=== PATIENT | female | born 1935 | race Caucasian/White ===

== ENCOUNTER 2017-07-24 18:23 | Inpatient (IN) | payer MEDICARE ==
[2017-07-24] MEDS ORDERED: Ondansetron HCl/PF 4 MG/2 ML Vial ONE ×2 (18:27→20:21)
[2017-07-24] MEDS ORDERED: Lidocaine Viscous Sol 2% 15 ml UD Cup ONE (18:51)
[2017-07-24] MEDS ORDERED: Fentanyl 100 MCG/2 ML VIAL ONE (19:02)
[2017-07-24 19:13] LABS: Lactic Acid - Sepsis 1.9 mmol/L (0.5-2.2)
[2017-07-24 19:19] LABS: PTT 28.2 SEC (22.9-36.1)
[2017-07-24 19:29] LABS: Troponin I Less than 0.010 ng/mL (< 0.028)
[2017-07-24] MEDS ORDERED: Sodium Chloride 0.9% 100 ML ONE (19:30)
[2017-07-24] MEDS ORDERED: Meropenem 1 GM VIAL ONE (19:30)
[2017-07-24] MEDS ORDERED: Lidocaine 2% PF 10 ML AMP (For Epidural Use) ONE (20:21)
[2017-07-24] MEDS ORDERED: Glycopyrrolate 0.2 MG/ML 5 ML SYRINGE ONE (20:21)
[2017-07-24] MEDS ORDERED: Succinylcholine Chloride 20 MG/ML 10 ml SYRINGE FS ONE (20:21)
[2017-07-24] MEDS ORDERED: Propofol 200 MG/20 ML VIAL ONE (20:21)
[2017-07-24] MEDS ORDERED: Dexamethasone 20 MG/5 ML VIAL ONE (20:21)
[2017-07-24] MEDS ORDERED: Ketorolac Tromethamine 30 MG/ML VIAL IVP PRN (20:57)
[2017-07-24] MEDS ORDERED: diphenhydrAMINE HCl 25 MG CAP PO PRN (20:57)
[2017-07-24] MEDS ORDERED: Morphine Sulfate 2 MG/ML SYRINGE SLOW IVP PRN (20:57)
[2017-07-24] MEDS ORDERED: Naloxone HCl 0.4 mg/ml Vial IV PRN (20:57)
[2017-07-24] MEDS ORDERED: diphenhydrAMINE HCl 50 MG/ML 1 ML VIAL IVP PRN (20:57)
[2017-07-24] MEDS ORDERED: Morphine CADD 1 MG/ML CADD IVPB PRN (20:57)
[2017-07-24] MEDS ORDERED: Promethazine HCl 25 MG/ML VIAL SLOW IVP PRN (20:57)
[2017-07-24] MEDS ORDERED: Ondansetron HCl/PF 4 MG/2 ML Vial IVP PRN ×3 (20:57→22:26)
[2017-07-24] MEDS ORDERED: Zolpidem Tartrate 5 MG TAB PO PRN (20:57)
[2017-07-24] MEDS ORDERED: Promethazine HCl 25 MG/ML VIAL IM PRN ×3 (20:57→22:26)
[2017-07-24] MEDS ORDERED: diphenhydrAMINE HCl 50 MG/ML 1 ML VIAL IM PRN (20:57)
[2017-07-24] MEDS ORDERED: Communication Order-Pharmacy FS SCH (21:00)
[2017-07-24] MEDS ORDERED: Morphine CADD 100 ML ONE (21:06)
--- NOTE | 2017-07-24 21:26 | RAD ---
AP ABDOMINAL RADIOGRAPH: 07/24/17 HISTORY: NG tube placement. COMPARISON: 07/24/17. Nasogastric tube is noted in place with the tip overlying the expected location of the distal esopha jessica. Nasogastric tube should be advanced by at least 12 cm. There is contrast seen within the stomac h as well as collecting systems, likely related to recent CT scan examination performed earlier toda y. No other interval change from prior views of the abdomen. IMPRESSION: Nasogastric tube noted in place with tip overlying the distal esophagus. Nasogastric tube should be advanced by at least 12 cm. POS: [facility]
[2017-07-24] MEDS ORDERED: Dextrose 50% Abboject 50 ML SYRINGE SLOW IVP PRN (22:26)
[2017-07-24] MEDS ORDERED: Dextrose 5% in Water 1,000 ML IV PRN (22:26)
[2017-07-24] MEDS ORDERED: Ondansetron ODT 4 MG TAB PO PRN (22:26)
[2017-07-24] MEDS: Sodium Chloride 0.9% 1,000 ML IV SCH (22:30)
[2017-07-24] MEDS ORDERED: Famotidine/PF 20 mg/2ml Vial SLOW IVP SCH (22:45)
[2017-07-25 00:17] VITALS: BMI 23.8
--- NOTE | 2017-07-25 04:47 | OP ---
DATE OF PROCEDURE: 07/24/2017 PREOPERATIVE DIAGNOSIS: Closed loop Small-bowel obstruction. POSTOPERATIVE DIAGNOSIS: Closed loop Small-bowel obstruction. PROCEDURE PERFORMED: Exploratory laparotomy, lysis of adhesions. SURGEON: Mikey Hand MD ANESTHESIA: General. ESTIMATED BLOOD LOSS: Minimal. COMPLICATIONS: None. SPECIMEN: None. FINDINGS: Closed obstruction with mild ischemia. TECHNIQUE: Patient was taken to the operating room and placed supine on the table. After general a nesthetic was obtained, the Robles was placed. The abdomen is prepped and draped in a sterile fashio n. Straight midline incision was made. Cautery was dissected down to the fascia. Fascia was enter ed carefully without injury, the small bowels run distally towards the terminal ileum where an adhes ion had caused a small-bowel obstruction closed loop. The adhesion is able to be bluntly released r eleasing the closed loop obstruction. Small bowels run all the way to the colon without further obs truction, all the way back to the ligament of Treitz. There were mild ischemic changes to the intes concha, but on untwisting it quickly became very viable appearing with no evidence of end organ necros is. All instrument counts, needle counts, and lap counts were correct. There was no other patholog y in the entire in the abdomen. Midline fascia was closed using #1 PDS from the top and the bottom and tied in the middle. Subcutaneous tissues were irrigated and closed using 3-0 Vicryl, 4-0 Monocr yl, and Dermabond. The patient went to recovery in stable condition. All instrument counts, needle counts, and lap counts were correct.
--- NOTE | 2017-07-25 05:41 | HP ---
DATE OF ADMISSION: 07/24/2017 CHIEF COMPLAINT: Abdominal pain. HISTORY OF PRESENT ILLNESS: This is an 81-year-old female who presents with pain in her abdomen, di ffuse, sharp, 8/10, does not radiate, associated with nausea, no vomiting. She denies any diarrhea or constipation. She had previous right colectomy by for early colon cancer. No further adjuvant treatment was needed. She has never had a bowel obstruction before. PAST MEDICAL HISTORY: Includes hypertension. PAST SURGICAL HISTORY: As above. MEDICINES TAKEN DAILY: Lisinopril. ALLERGIES: No known drug allergies. SOCIAL HISTORY: No smoking or alcohol. She is . REVIEW OF SYSTEMS: Otherwise, negative. PHYSICAL EXAMINATION: HEENT: Sclerae are anicteric. Oropharynx is clear. NECK: No lymphadenopathy. CHEST: Clear. HEART: Regular rate and rhythm. ABDOMEN: Soft, diffusely tender with guarding and rebound. EXTREMITIES: No ischemia or edema to extremities. LABORATORY AND X-RAY FINDINGS: White blood cell count is 15, her creatinine is normal. CT scan rev eals evidence of closed loop obstruction. ASSESSMENT: Closed loop small-bowel obstruction. PLAN: Urgent exploratory laparotomy, lysis of adhesions. Risks, benefits, alternatives discussed. She gave consent. We will do this tonight.
[2017-07-25 05:56] LABS: #Lymphocytes 1.1 thou/uL (1.20-3.40); #Monocytes 0.4 thou/uL (0.11-0.59); %Basophils 0.2 % (0.0-1.0); %Lymphocytes 8.5 % (21.0-51.0); %Monocytes 3.3 % (0.0-10.0); Hematocrit 34.1 % (36.0-47.0); Mean Platelet Volume 6.8 fL (7.4-10.4); White Blood Cell (WBC) Count 12.6 thou/uL (4.8-10.8)
[2017-07-25 06:15] LABS: Anion Gap 13 mmol/L (10-20); BUN (Urea Nitrogen) 23 mg/dL (9.8-20.1); Calc. Creatinine Clearance 56 mL/min (70-130); Calcium 8.8 mg/dL (7.8-10.44); Carbon Dioxide 22 mmol/L (23-31); Chloride 107 mmol/L (98-107); Estimated GFR-MDRD 65
[2017-07-25] MEDS: Sodium Chloride 0.9% 1,000 ML IV SCH ×2 (09:26→17:41)
[2017-07-25] MEDS: Famotidine/PF 20 mg/2ml Vial SLOW IVP SCH ×2 (09:27→21:37)
[2017-07-25] MEDS: Enoxaparin Sodium 40 MG/0.4 ML SYRINGE SC SCH (09:27)
--- NOTE | 2017-07-25 14:48 | PRG ---
DATE OF SERVICE: 07/25/2017 SUBJECTIVE: Ms. Denise is postop day #1 ex lap for lysis of adhesion for closed loop obstruction. She is doing well. Her pain is controlled. PHYSICAL EXAMINATION: VITAL SIGNS: She is afebrile, vital signs are stable. Urine output is adequate. NG output was min imal overnight. ABDOMEN: Soft. Her wounds healing well. ASSESSMENT: Postop day #1, exploratory laparotomy for closed loop obstruction. PLAN: Discontinue NG, discontinue Robles, encouraged ambulation, allow sips of clears.
[2017-07-26] MEDS: Sodium Chloride 0.9% 1,000 ML IV SCH (04:04)
[2017-07-26] MEDS: Enoxaparin Sodium 40 MG/0.4 ML SYRINGE SC SCH (09:42)
[2017-07-26] MEDS: Famotidine/PF 20 mg/2ml Vial SLOW IVP SCH ×2 (09:42→21:01)
--- NOTE | 2017-07-26 10:45 | PRG ---
DATE OF SERVICE: 07/26/2017 SUBJECTIVE: Ms. Denise is doing well. No nausea, vomiting, passing gas. PHYSICAL EXAMINATION: VITAL SIGNS: Afebrile, vital signs are stable. ABDOMEN: Soft, nontender, active bowel sounds. Wound is healing well. ASSESSMENT: Tolerating a liquid diet without difficulty, will advance to full liquids, Hep-Lock the IV. Likely home tomorrow. Dr. Javier is going to send her home for me tomorrow
[2017-07-26] MEDS: Lisinopril 20 MG TAB PO SCH (21:00)
[2017-07-27] MEDS ORDERED: HYDROcodone/Acetaminophen 5/325 mg Tablet PO PRN ×2 (04:57)
[2017-07-27] MEDS ORDERED: traMADol HCl 50 MG TAB PO PRN ×2 (04:58)
[2017-07-27] MEDS ORDERED: Levothyroxine Sodium 75 MCG TAB PO SCH (09:00)
[2017-07-27] MEDS ORDERED: Hydrochlorothiazide 25 MG TAB PO SCH (09:00)
[2017-07-27] MEDS ORDERED: Bisacodyl 10 MG SUPP PR PRN (09:13)
--- NOTE | 2017-07-27 09:26 | PRG ---
DATE OF SERVICE: 07/27/2017 SUBJECTIVE: Patient is status post exploratory laparotomy and lysis of adhesions for small bowel obs truction. She reports that she really do not have any significant pain, but she has not passed anyt moises out of her bottom. No gas. No bowel movements. She is tolerating liquids. She feels hungry for something more substantial. PHYSICAL EXAMINATION: VITAL SIGNS: Her temperature is 98.3, pulse 53, blood pressure 169/82. GENERAL: She is awake, alert, in no apparent distress. HEENT: Unremarkable. LUNGS: Clear. HEART: Regular rate and rhythm. ABDOMEN: Slightly distended. There are some bowel sounds present. The incision is healing well wi thout evidence of infection or hernia. ASSESSMENT: Postoperative ileus. PLAN: I would like for her to pass something out of her bottom before she goes home. We will give her a full liquid diet and Dulcolax suppository.
[2017-07-27] MEDS: Enoxaparin Sodium 40 MG/0.4 ML SYRINGE SC SCH (10:12)
[2017-07-27] MEDS: Lisinopril 20 MG TAB PO SCH (10:12)
[2017-07-27] MEDS: Famotidine/PF 20 mg/2ml Vial SLOW IVP SCH (10:13)
[2017-07-27 12:41] VITALS: BP 175/83; TEMP 98.2
== END 2017-07-27 15:15 | disposition home or self-care (01) | DRG 336 ==
LOC: ERS 18:23 → SDC 19:14 → SURG A 22:23
PROVIDERS: ADMIT Surgery; ATTEND Surgery
PROC: 0DN80ZZ Release Small Intestine, Open Approach (ICD-10-PCS; principal; 2017-07-24)
DX: K91.3 Postprocedural intestinal obstruction (principal); K56.7 Ileus, unspecified; N39.0 Urinary tract infection, site not specified; I10 Essential (primary) hypertension; Z90.49 Acquired absence of other specified parts of digestive tract; Z85.038 Personal history of other malignant neoplasm of large intestine; E78.5 Hyperlipidemia, unspecified; E03.9 Hypothyroidism, unspecified; Z96.651 Presence of right artificial knee joint; B96.20 Unspecified Escherichia coli [E. coli] as the cause of diseases classified elsewhere
CPT/HCPCS: 36415; 74000; 80048; 83605; 83690; 83880; 85025; 85610; 85730; 93005; 96361; 96374; 96375; J1100; J1650; J2001; J2185; J2270; J2274; J2405; J2704; J3010; J7050; S0028

== ENCOUNTER 2018-01-04 05:47 | Day surgery (SDC) | payer MEDICARE ==
[2018-01-03 10:01] VITALS: BMI 23.1
--- NOTE | 2018-01-04 01:31 | HP ---
SHORT STAY HISTORY AND PHYSICAL DATE OF ADMISSION: 01/04/2018 HISTORY OF PRESENT ILLNESS: This is an 81-year-old female with history of right colon canc er, status post right colectomy. The patient also had colon polyps removed in the past. The patient at the present time has no specific GI symptoms. The patient also had a colonoscopy because of prev ious colon cancer surgery. ALLERGIES: None. MEDICAL ILLNESSES: 1. Colon cancer, status post right colectomy. 2. Hyperlipidemia. 3. Hypertension. 4. Colon polyp. 5. Arthritis. 6. Hypothyroidism. SOCIAL HISTORY: The patient does not smoke or drink alcohol. PHYSICAL EXAMINATION: VITAL SIGNS: Pulse is 70, blood pressure 140/80. HEENT: Conjunctivae clear. CARDIOVASCULAR SYSTEM: Lungs within normal limits. ABDOMEN: Soft to palpate. No organomegaly. No tenderness. No masses. ADMITTING DIAGNOSIS: Colon cancer, status post right colectomy. PLAN: Followup colonoscopy.
--- NOTE | 2018-01-04 10:01 | OP ---
DATE OF PROCEDURE: 01/04/2018 SURGEON: Av Toribio M.D. OPERATIVE PROCEDURE: Colonoscopy. PREOPERATIVE DIAGNOSES: An 82-year-old female status post right hemicolectomy more than 10 years ago. The patient also had a colon polyp. The patient is undergoing followup colonoscopy because of previous colon cancer surgery. POSTOPERATIVE DIAGNOSES: 1. Sigmoid diverticular disease. 2. Large hemorrhoids. PROCEDURE IN DETAIL: The patient was placed on her left lateral position and was given sedation by Anesthesia Department. A rectal exam was done before the scope was advanced into the rectum. No lesions felt on rectal exam. A Pentax video colonoscope was introduced into the rectum and advanced all the way into the anastomotic area. The anastomotic area appeared healthy. The terminal ileum appeared normal The ileal mucosa was normal. Withdrawal from the anastomotic area down the transverse colon, splenic flexure, descending colon appeared healthy. The sigmoid colon showed scattered diverticular disease. Retroflexion of scope in the rectum showed hemorrhoids. DISCHARGE PLANNING: This is an 82-year-old female with previous colon cancer surgery with a right colectomy many years ago. The patient also had colon polyps removed in the past. Because of colon cancer surgery, she was brought in for a colonoscopy. The colonoscopy showed basically hemorrhoids and sigmoid diverticula disease. DISCHARGE RECOMMENDATIONS: 1. The patient advised to call me if she develops abdominal pain, hematochezia or fever. 2. High-fiber diet. 3. The patient may not need any more colonoscopy because she is 82 years old and in 5 years will be 87. MTDD
== END 2018-01-04 09:13 | disposition home or self-care (01) ==
LOC: SDC 05:47
PROVIDERS: ATTEND Internal Medicine Gastroenterology
PROC: 0DJD8ZZ Inspection of Lower Intestinal Tract, Via Natural or Artificial Opening Endoscopic (ICD-10-PCS; principal; 2018-01-04)
DX: Z12.11 Encounter for screening for malignant neoplasm of colon (principal); K57.30 Diverticulosis of large intestine without perforation or abscess without bleeding; K64.9 Unspecified hemorrhoids; I10 Essential (primary) hypertension; E78.5 Hyperlipidemia, unspecified; E03.9 Hypothyroidism, unspecified; M19.90 Unspecified osteoarthritis, unspecified site; Z90.49 Acquired absence of other specified parts of digestive tract; Z98.890 Other specified postprocedural states; Z85.038 Personal history of other malignant neoplasm of large intestine; Z86.010 Personal history of colon polyps

== ENCOUNTER 2018-12-04 07:49 | Outpatient (CLI) | payer MEDICARE | END 2018-12-04 07:50 | disposition home or self-care (01) | LOC: BICMAMMO 07:49 | PROVIDERS: ATTEND Family Medicine | DX: Z12.31 Encounter for screening mammogram for malignant neoplasm of breast (principal); Z85.038 Personal history of other malignant neoplasm of large intestine | CPT/HCPCS: 77063; 77067 ==

== ENCOUNTER 2022-09-15 11:25 | Emergency (ER) | payer MEDICARE ==
[2022-09-15] MEDS ORDERED: Iopamidol-370 76% 500 ML 1 ML ONE (11:32)
[2022-09-15 12:21] LABS: #Basophils 0.1 thou/uL (0.0-0.2); #Eosinphils 0.1 thou/uL (0.0-0.7); #Lymphocytes 1.5 thou/uL (1.20-3.40); #Monocytes 0.8 thou/uL (0.11-0.59); #Neutrophils 7.8 thou/uL (1.40-6.50); %Basophils 1.4 % (0.0-1.0); %Eosinophils 1.1 % (0.0-10.0); %Lymphocytes 14.6 % (21.0-51.0); Hemoglobin 13.1 g/dL (12.0-16.0); Mean Corpuscular HGB CONC 32.9 g/dL (32.0-36.0); Mean Corpuscular Hemoglobin 31.4 pg (27.0-31.0); Mean Corpuscular Volume 95.7 fl (78.0-98.0); Mean Platelet Volume 7.3 fL (7.4-10.4); Platelet Count 246 10x3/uL (130-400); RBC Distribution Width 12.5 % (11.5-14.5); Red Blood Cell (RBC) Count 4.16 mill/uL (4.20-5.40); White Blood Cell (WBC) Count 10.5 10x3/uL (4.8-10.8)
[2022-09-15 12:25] LABS: Bilirubin Negative (Negative); Blood, Urine Trace (Negative); Clarity Turbid (Clear); Glucose, Urine (Dipstick) Normal (Negative); Ketone, Urine Negative (Negative); Leukocyte Negative Leu/uL (Negative); Nitrite 2+ (Negative); Protein, Urine (Dipstick) Negative (Neg-Trace); RBC/HPF 0-3 HPF (0-3); Specific Gravity, Urine 1.012 (1.002-1.036); Squamous Epithelial None Seen HPF (0-3); Urobilinogen Normal mg/dL (Less than 2); WBC/HPF 0-3 HPF (0-3)
[2022-09-15 12:26] LABS: Bacteria/HPF 1+ HPF (None Seen)
[2022-09-15 12:41] LABS: ALT (SGPT) 18 U/L (8-55); AST (SGOT) 29 U/L (5-34); Albumin 4.6 g/dL (3.4-4.8); Alkaline Phosphatase 112 U/L (40-110); Anion Gap 16 mmol/L (10-20); BUN (Urea Nitrogen) 24 mg/dL (9.8-20.1); Bilirubin, Total 1.2 mg/dL (0.2-1.2); Calc. Creatinine Clearance 0 mL/min (70-130); Calcium 10.1 mg/dL (7.8-10.44); Carbon Dioxide 26 mmol/L (23-31); Chloride 95 mmol/L (98-107); Estimated GFR 69; Globulin 3.6 g/dL (2.4-3.5); Glucose 99 mg/dL (83-110); Lipase 30 U/L (8-78); Potassium 3.9 mmol/L (3.5-5.1); Protein, Total 8.2 g/dL (5.8-8.1); Sodium 133 mmol/L (136-145)
== END 2022-09-15 14:59 | disposition home or self-care (01) ==
LOC: ERS 11:25
DX: K59.00 Constipation, unspecified (principal); E03.9 Hypothyroidism, unspecified; E78.00 Pure hypercholesterolemia, unspecified; I10 Essential (primary) hypertension
CPT/HCPCS: 74177; 80053; 81003; 81015; 83690; 85025; Q9967

== ENCOUNTER 2023-05-02 18:06 | Emergency (ER) | payer OTHER, MEDICARE ==
[2023-05-02] MEDS ORDERED: Lidocaine 1% w/Epinephrine 1:100K 20 ML VIAL ONE (19:28)
[2023-05-02] MEDS ORDERED: Boostrix 0.5 ML (Tdap) VIAL (>/=7 yrs of age) ONE (19:28)
== END 2023-05-02 21:00 | disposition home or self-care (01) ==
LOC: ERS 18:06
DX: S00.03XA Contusion of scalp, initial encounter (principal); S82.002A Unspecified fracture of left patella, initial encounter for closed fracture; S02.2XXA Fracture of nasal bones, initial encounter for closed fracture; E03.9 Hypothyroidism, unspecified; E78.00 Pure hypercholesterolemia, unspecified; I10 Essential (primary) hypertension; W01.110A Fall on same level from slipping, tripping and stumbling with subsequent striking against sharp glass, initial encounter; Z79.82 Long term (current) use of aspirin; Z23 Encounter for immunization
CPT/HCPCS: 12013; 70450; 70486; 72125; 90471; 90715

== ENCOUNTER 2023-12-29 23:26 | Inpatient (IN) | payer MEDICARE, OTHER ==
[2023-12-30 01:22] VITALS: BMI 23.8
[2023-12-30] MEDS ORDERED: Ondansetron PF 4 MG/2 ML Vial IVP PRN ×2 (02:24→04:07)
[2023-12-30] MEDS: Morphine 2 MG/ML VIAL SLOW IVP PRN (02:36)
[2023-12-30] MEDS: Sodium Chloride 0.9% 1,000 ML IV SCH (02:37)
[2023-12-30] MEDS ORDERED: Ipratropium/Albuterol 3 ML NEB NEB PRN (04:07)
[2023-12-30] MEDS ORDERED: hydrALAZINE 20 MG/ML VIAL SLOW IVP PRN (04:07)
[2023-12-30 05:11] LABS: #Eosinphils 0.1 thou/uL (0.0-0.7); #Monocytes 0.6 thou/uL (0.11-0.59); #Neutrophils 9.3 thou/uL (1.40-6.50); %Basophils 0.2 % (0.0-1.0); %Eosinophils 0.8 % (0.0-10.0); %Lymphocytes 11.9 % (21.0-51.0); %Monocytes 5.3 % (0.0-10.0); %Neutrophils 81.4 % (42.0-75.0); Hematocrit 37.1 % (36.0-47.0); Hemoglobin 12.4 g/dL (12.0-16.0); Mean Corpuscular HGB CONC 33.4 g/dL (32.0-36.0); Mean Corpuscular Hemoglobin 30.7 pg (27.0-31.0); Mean Corpuscular Volume 91.8 fl (78.0-98.0); Mean Platelet Volume 9.7 fL (7.4-10.4); Platelet Count 203 10x3/uL (130-400); RBC Distribution Width 13.6 % (11.5-14.5); Red Blood Cell (RBC) Count 4.04 mill/uL (4.20-5.40); White Blood Cell (WBC) Count 11.4 10x3/uL (4.8-10.8)
[2023-12-30 05:28] LABS: Prothrombin Time 12.8 sec (12.0-14.7)
[2023-12-30 05:29] LABS: PTT 28.9 sec (22.9-36.1)
[2023-12-30 05:46] LABS: Anion Gap 12 mmol/L (10-20); BUN (Urea Nitrogen) 20 mg/dL (9.8-20.1); Calc. Creatinine Clearance 55 mL/min (70-130); Calcium 9.4 mg/dL (7.8-10.44); Carbon Dioxide 25 mmol/L (23-31); Chloride 106 mmol/L (98-107); Estimated GFR 79; Glucose 98 mg/dL (83-110); Potassium 4.1 mmol/L (3.5-5.1); Sodium 139 mmol/L (136-145)
[2023-12-30] MEDS: Levothyroxine Sodium 75 MCG TAB PO SCH (08:12)
[2023-12-30] MEDS ORDERED: CEFAZOLIN 2 GM in Sodium Chloride 0.9% 100 ML IVPB SCH (08:15)
[2023-12-30] MEDS: Cyclobenzaprine 10 MG TAB PO PRN (12:00)
[2023-12-30] MEDS ORDERED: Norepinephrine 4 MG/4 ML VIAL ONE (13:27)
[2023-12-30] MEDS ORDERED: PROPOFOL 20 ML ONE ×2 (13:27→13:44)
[2023-12-30] MEDS ORDERED: Sodium Chloride 0.9% 100 ML ONE (13:43)
[2023-12-30] MEDS ORDERED: CEFAZOLIN 2 GM VIAL ONE (13:43)
[2023-12-30] MEDS ORDERED: Lidocaine 1% PF 5 ML VIAL ONE (13:45)
[2023-12-30] MEDS ORDERED: Ondansetron PF 4 MG/2 ML Vial ONE (13:45)
[2023-12-30] MEDS ORDERED: Rocuronium Bromide 10 MG/ML (10ML VIAL) ONE (14:00)
[2023-12-30] MEDS ORDERED: fentaNYL PF 100 MCG/2 ML SYRINGE ONE (14:34)
[2023-12-30] MEDS ORDERED: SUGAMMADEX SODIUM 200 MG/2 ML VIAL ONE (15:02)
[2023-12-30] MEDS: Acetaminophen 500 MG TAB PO PRN (21:18)
[2023-12-30] MEDS: CEFAZOLIN 2 GM in Sodium Chloride 0.9% 100 ML IVPB SCH (21:18)
[2023-12-31 04:51] LABS: #Eosinphils 0.3 thou/uL (0.0-0.7); #Monocytes 0.8 thou/uL (0.11-0.59); #Neutrophils 6.5 thou/uL (1.40-6.50); %Basophils 0.2 % (0.0-1.0); %Eosinophils 2.8 % (0.0-10.0); %Lymphocytes 14.6 % (21.0-51.0); %Monocytes 9.1 % (0.0-10.0); %Neutrophils 72.9 % (42.0-75.0); Hematocrit 31.1 % (36.0-47.0); Hemoglobin 10.4 g/dL (12.0-16.0); Mean Corpuscular HGB CONC 33.4 g/dL (32.0-36.0); Mean Corpuscular Hemoglobin 30.8 pg (27.0-31.0); Platelet Count 183 10x3/uL (130-400); RBC Distribution Width 13.9 % (11.5-14.5); Red Blood Cell (RBC) Count 3.38 mill/uL (4.20-5.40); White Blood Cell (WBC) Count 8.9 10x3/uL (4.8-10.8)
[2023-12-31 05:33] LABS: Anion Gap 9 mmol/L (10-20); BUN (Urea Nitrogen) 15 mg/dL (9.8-20.1); Calc. Creatinine Clearance 51 mL/min (70-130); Calcium 8.4 mg/dL (7.8-10.44); Carbon Dioxide 24 mmol/L (23-31); Chloride 104 mmol/L (98-107); Estimated GFR 70; Glucose 120 mg/dL (83-110); Phosphorus 3.1 mg/dL (2.3-4.7); Potassium 3.8 mmol/L (3.5-5.1); Sodium 133 mmol/L (136-145)
[2023-12-31] MEDS ORDERED: Acetaminophen/Codeine 30-300mg Tablet PO PRN (08:51)
[2023-12-31] MEDS ORDERED: traMADol HCl 50 MG TAB PO PRN ×2 (08:51)
[2023-12-31] MEDS: Acetaminophen/Codeine 30-300mg Tablet PO PRN (09:43)
[2023-12-31] MEDS: Acetaminophen 325 MG TAB PO SCH (14:12)
[2023-12-31] MEDS: traMADol HCl 50 MG TAB PO SCH (17:57)
[2023-12-31] MEDS: Senokot S 8.6-50 MG TAB PO SCH (20:33)
[2023-12-31] MEDS: Rosuvastatin 5 MG TAB PO SCH (20:33)
[2023-12-31] MEDS: Aspirin 81 mg Enteric Coated Tablet PO SCH (20:34)
[2024-01-01] MEDS: Polyethylene Glycol 3350 17 GM Packet PO SCH (09:43)
[2024-01-01 23:48] VITALS: TEMP 97.6
[2024-01-02] MEDS: traMADol HCl 50 MG TAB PO PRN (08:47)
[2024-01-02 12:04] VITALS: BP 132/82
== END 2024-01-02 14:30 | disposition swing bed (61) | DRG 522 ==
LOC: SURG A 23:29
PROVIDERS: ADMIT Specialist; ATTEND Specialist
PROC: 0SRR0JA Replacement of Right Hip Joint, Femoral Surface with Synthetic Substitute, Uncemented, Open Approach (ICD-10-PCS; principal; 2023-12-30)
DX: S72.011A Unspecified intracapsular fracture of right femur, initial encounter for closed fracture (principal); I10 Essential (primary) hypertension; E78.5 Hyperlipidemia, unspecified; M19.90 Unspecified osteoarthritis, unspecified site; E03.9 Hypothyroidism, unspecified; Z85.038 Personal history of other malignant neoplasm of large intestine; Z79.82 Long term (current) use of aspirin; Z79.891 Long term (current) use of opiate analgesic; Z79.899 Other long term (current) drug therapy
CPT/HCPCS: 36415; 72170; 80048; 83735; 84100; 85025; 85610; 85730; 86850; 86900; 86901; C1776; J2272; J2405; J2704; J3490; J7050

== ENCOUNTER 2024-10-15 07:43 | Outpatient (CLI) | payer MEDICARE | END 2024-10-15 07:44 | disposition home or self-care (01) | LOC: ULT 07:43 | PROVIDERS: ATTEND Student in an Organized Health Care Education/Training Program | DX: I73.9 Peripheral vascular disease, unspecified (principal); I70.201 Unspecified atherosclerosis of native arteries of extremities, right leg | CPT/HCPCS: 93923 ==